=== PATIENT | male | born 1980 | race Caucasian/White ===

== ENCOUNTER 2021-07-09 11:20 | Outpatient (CLI) | payer MEDICARE, BC, MEDICAID, SELFPAY ==
[2021-07-09 11:54] LABS: Add Urine Microscopic? YES; Appearance Urine Clear (Clear); Bilirubin Urine Negative (Negative); Blood Urine Negative (Negative); Color Urine Yellow (Yellow); Glucose Urine UA Negative (Negative); Ketones Urine Trace (Negative); Leukocyte Esterase Ur Negative (Negative); Nitrate Urine Negative (Negative); Protein Urine Negative (Negative); Specific Grav Ur >= 1.030 (1.010-1.020); Urobilinogen Urine 0.2 mg/dL (0.2-1.0)
[2021-07-09 11:55] LABS: Basophils Absolute Auto 0.02 K/mm3 (0.00-0.10); Basophils Percent Auto 0.4 % (0.0-1.0); Eosinophils Absolute Auto 0.12 K/mm3 (0.02-0.50); Eosinophils Percent Auto 2.1 % (1.0-6.0); Hemoglobin 13.3 g/dL (14.0-18.0); Immature Granulocyte Absolute 0.02 K/mm3 (0.00-0.00); Immature Granulocyte Percent A 0.4 % (0.0-0.0); Lymphocytes Percent Auto 35.8 % (18.0-42.0); Mean Corpuscular HGB Conc 32.4 g/dL (32.0-36.0); Mean Corpuscular Hemoglobin 31.4 pg (27.0-31.0); Mean Corpuscular Volume 96.7 fL (78.0-102.0); Mean Platelet Volume 10.9 fl (8.7-11.0); Monocytes Absolute Auto 0.37 K/mm3 (0.10-0.90); Monocytes Percent Auto 6.6 % (2.0-11.0); Neutrophils Absolute Auto 3.1 K/mm3 (1.7-7.2); Neutrophils Percent Auto 54.7 % (50.0-70.0); Platelet Count Result 172 K/mm3 (150-420); Red Blood Count 4.24 M/mm3 (4.70-6.10); Red Cell Distribution Width 12.1 % (11.6-14.4); White Blood Count 5.6 K/mm3 (4.8-10.8)
[2021-07-09 12:01] LABS: Bacteria Urine None seen /hpf; RBC Urine 0-2 /hpf (0-2); Squamous Epithelial Cell Urine Rare /hpf (Few); WBC Urine 0-3 /hpf (0-3)
[2021-07-09 12:48] LABS: Alanine Aminotransferase 18 U/L (16-63); Alkaline Phosphatase 73 U/L (46-116); Anion Gap 7 mmol/L (8-16); Aspartate Amino Transferase 12 U/L (15-37); Bilirubin Direct 0.1 mg/dL (0-0.2); Bilirubin,Total 0.4 mg/dL (0.00-1.00); Blood Urea Nitrogen 12 mg/dL (7-18); Carbon Dioxide 29 mmol/L (21-32); Chloride 110 mmol/L (98-108); Cholesterol 168 mg/dL (0-200); Estimated Glomerular Filt Rate > 60; Folic Acid 11.9 ng/mL (8.6->20); Free T4 Free Thyroxine 0.91 ng/dL (0.76-1.46); Glucose 81 mg/dL (70-99); HDL Direct 55 mg/dL (40-60); LDL Cholesterol Calculated 97 mg/dL (<130); Osmolality Calculated 300 mOsm/kg (285-295); Potassium 4.5 mmol/L (3.5-5.1); Sodium 146 mmol/L (136-145); Thyroid Stimulating Hormone 1.05 uIU/mL (0.36-3.74); Total Protein 6.7 g/dL (6.4-8.2); Triglycerides 78 mg/dL (0-150); Vitamin B12 338 pg/mL (193-986)
== END 2021-07-09 11:21 | disposition home or self-care (01) ==
PROVIDERS: PCP Physician Assistant; Visit Provider Physician Assistant
DX: Z79.899 Other long term (current) drug therapy (principal); Z13.220 Encounter for screening for lipoid disorders
CPT/HCPCS: 36415; 80048; 80061; 80076; 81001; 82607; 82746; 84439; 84443; 85025

== ENCOUNTER 2021-08-11 13:36 | Outpatient (CLI) | payer MEDICARE, SELFPAY ==
[2021-08-11 13:54] LABS: Basophils Absolute Auto 0.02 K/mm3 (0.00-0.10); Basophils Percent Auto 0.5 % (0.0-1.0); Eosinophils Absolute Auto 0.15 K/mm3 (0.02-0.50); Eosinophils Percent Auto 3.5 % (1.0-6.0); Hematocrit 41.4 % (40.0-54.0); Hemoglobin 13.7 g/dL (14.0-18.0); Immature Granulocyte Absolute 0.01 K/mm3 (0.00-0.00); Immature Granulocyte Percent A 0.2 % (0.0-0.0); Lymphocytes Absolute Auto 1.41 K/mm3 (1.10-4.50); Lymphocytes Percent Auto 32.5 % (18.0-42.0); Mean Corpuscular HGB Conc 33.1 g/dL (32.0-36.0); Mean Corpuscular Volume 96.7 fL (78.0-102.0); Monocytes Absolute Auto 0.25 K/mm3 (0.10-0.90); Monocytes Percent Auto 5.8 % (2.0-11.0); Neutrophils Absolute Auto 2.5 K/mm3 (1.7-7.2); Neutrophils Percent Auto 57.5 % (50.0-70.0); Platelet Count Result 187 K/mm3 (150-420); Red Blood Count 4.28 M/mm3 (4.70-6.10); Red Cell Distribution Width 12.2 % (11.6-14.4); White Blood Count 4.3 K/mm3 (4.8-10.8)
[2021-08-11 15:01] LABS: Alanine Aminotransferase 15 U/L (16-63); Alkaline Phosphatase 73 U/L (46-116); Anion Gap 7 mmol/L (8-16); Aspartate Amino Transferase < 10 U/L (15-37); Bilirubin,Total 0.3 mg/dL (0.00-1.00); Blood Urea Nitrogen 16 mg/dL (7-18); Calcium 9.1 mg/dL (8.5-10.1); Carbon Dioxide 32 mmol/L (21-32); Chloride 106 mmol/L (98-108); Cholesterol 160 mg/dL (0-200); Estimated Glomerular Filt Rate > 60; Ferritin 68 ng/mL (26-388); Free T3 2.07 pg/mL (2.18-3.98); Free T4 Free Thyroxine 0.94 ng/dL (0.76-1.46); Glucose 85 mg/dL (70-99); HDL Direct 55 mg/dL (40-60); Iron 56 ug/dL (65-175); LDL Cholesterol Calculated 95 mg/dL (<130); Osmolality Calculated 300 mOsm/kg (285-295); Percent Iron Saturation 25 % (12-57); Potassium 4.8 mmol/L (3.5-5.1); Sodium 145 mmol/L (136-145); Thyroid Stimulating Hormone 0.67 uIU/mL (0.36-3.74); Total Protein 6.3 g/dL (6.4-8.2); Triglycerides 48 mg/dL (0-150); Vitamin B12 304 pg/mL (193-986)
[2021-08-14 13:25] LABS: Vitamin D 25 Hydroxy 25 ng/mL (30-100)
== END 2021-08-11 13:37 | disposition home or self-care (01) ==
LOC: CHSLAB 13:42
PROVIDERS: PCP Physician Assistant
DX: F33.1 Major depressive disorder, recurrent, moderate (principal); Z79.899 Other long term (current) drug therapy; R71.8 Other abnormality of red blood cells; R79.9 Abnormal finding of blood chemistry, unspecified
CPT/HCPCS: 36415; 80053; 80061; 82306; 82607; 82728; 83036; 83540; 83550; 84439; 84443; 84481; 85025

== ENCOUNTER 2022-01-05 12:44 | Outpatient (CLI) | payer MEDICARE, MEDICAID, SELFPAY ==
[2022-01-05 13:15] LABS: Basophils Absolute Auto 0.02 K/mm3 (0.00-0.10); Basophils Percent Auto 0.4 % (0.0-1.0); Eosinophils Absolute Auto 0.08 K/mm3 (0.02-0.50); Eosinophils Percent Auto 1.6 % (1.0-6.0); Hematocrit 42.5 % (40.0-54.0); Immature Granulocyte Absolute 0.01 K/mm3 (0.00-0.00); Immature Granulocyte Percent A 0.2 % (0.0-0.0); Lymphocytes Absolute Auto 1.82 K/mm3 (1.10-4.50); Lymphocytes Percent Auto 37.3 % (18.0-42.0); Mean Corpuscular HGB Conc 32.9 g/dL (32.0-36.0); Mean Corpuscular Hemoglobin 31.6 pg (27.0-31.0); Mean Corpuscular Volume 95.9 fL (78.0-102.0); Mean Platelet Volume 10.3 fl (8.7-11.0); Monocytes Absolute Auto 0.28 K/mm3 (0.10-0.90); Monocytes Percent Auto 5.7 % (2.0-11.0); Neutrophils Absolute Auto 2.7 K/mm3 (1.7-7.2); Neutrophils Percent Auto 54.8 % (50.0-70.0); Platelet Count Result 184 K/mm3 (150-420); Red Blood Count 4.43 M/mm3 (4.70-6.10); Red Cell Distribution Width 12.5 % (11.6-14.4); White Blood Count 4.9 K/mm3 (4.8-10.8)
[2022-01-05 14:19] LABS: Alanine Aminotransferase 20 U/L (16-63); Albumin Level 3.8 g/dL (3.4-5.0); Alkaline Phosphatase 71 U/L (46-116); Anion Gap 10 mmol/L (8-16); Aspartate Amino Transferase 14 U/L (15-37); Bilirubin,Total 0.5 mg/dL (0.00-1.00); Blood Urea Nitrogen 17 mg/dL (7-18); Calcium 8.8 mg/dL (8.5-10.1); Carbon Dioxide 30 mmol/L (21-32); Chloride 103 mmol/L (98-108); Estimated Glomerular Filt Rate > 60; Ferritin 57 ng/mL (26-388); Free T3 2.08 pg/mL (2.18-3.98); Free T4 Free Thyroxine 0.93 ng/dL (0.76-1.46); Glucose 77 mg/dL (70-99); Iron 109 ug/dL (65-175); Osmolality Calculated 296 mOsm/kg (285-295); Percent Iron Saturation 48 % (12-57); Potassium 4.1 mmol/L (3.5-5.1); Sodium 143 mmol/L (136-145); Thyroid Stimulating Hormone 1.68 uIU/mL (0.36-3.74); Total Protein 6.3 g/dL (6.4-8.2); Vitamin B12 483 pg/mL (193-986)
[2022-01-07 14:29] LABS: Vitamin D 25 Hydroxy 62 ng/mL (30-100)
== END 2022-01-05 12:45 | disposition home or self-care (01) ==
LOC: CHSLAB 12:53
PROVIDERS: PCP Physician Assistant
DX: F33.1 Major depressive disorder, recurrent, moderate (principal); D50.9 Iron deficiency anemia, unspecified; E55.9 Vitamin D deficiency, unspecified; Z13.89 Encounter for screening for other disorder
CPT/HCPCS: 36415; 80053; 82306; 82607; 82728; 83540; 83550; 84439; 84443; 84481; 85025

== ENCOUNTER 2022-01-28 12:19 | Outpatient (CLI) | payer MEDICARE, MEDICAID, SELFPAY ==
--- NOTE | 2022-01-29 11:23 | P.NEURO_ITS ---
Neurology EEG Report General Information Date of Study: 01/28/22 TEST eeg DIAGNOSIS Seizure disorder CONDITION OF RECORDING awake drowsy and sleep EEG NUMBER [id number] CLINICAL HISTORY patient reported he started having seizures about 4 years ago after having a stroke that left him partially paralyzed on the right side and affected his speech as well EEG DESCRIPTION basic resting occipital frequency consists of very minimal amount of poorly organized low voltage 8 to 10 hertz per 2nd alpha admixed with large amount of low-voltage 15 to 18 hertz per 2nd beta. During drowsiness low-voltage beta activity seen diffusely admixed with waxing and waning poorly organized background rhythm particularly posteriorly. Low-voltage beta activity seen admixed with 5 to 7 hertz per 2nd theta activity bilaterally with left hemispheric dominance. Hyperventilation not done. Photic stimulation produced poor Dr. throughout the tracing multiple movement artifacts and EKG artifacts are noted. Non paroxysmal. Focal. And lateralizing. IMPRESSION Abnormal record due to the presence of bihemispheric theta activity with left hemispheric dominance suggestive of underlying focal structural lesion p articularly on the left side but there is no evidence of paroxysmal activity throughout the tracing clinical correlation recommended these abnormalities could be suggestive of underlying left hemisphere focal for seizure activity
== END 2022-01-28 12:20 | disposition home or self-care (01) ==
LOC: ANHNEURO 12:20
PROVIDERS: PCP Physician Assistant; Visit Provider Physician Assistant
DX: G40.909 Epilepsy, unspecified, not intractable, without status epilepticus (principal); R94.01 Abnormal electroencephalogram [EEG]
CPT/HCPCS: 95816

== ENCOUNTER 2022-06-30 10:10 | Outpatient (CLI) | payer MEDICARE, BC, SELFPAY ==
[2022-06-30 10:33] LABS: Basophils Absolute Auto 0.03 K/mm3 (0.00-0.10); Basophils Percent Auto 0.5 % (0.0-1.0); Eosinophils Absolute Auto 0.16 K/mm3 (0.02-0.50); Eosinophils Percent Auto 2.5 % (1.0-6.0); Hematocrit 40.4 % (40.0-54.0); Hemoglobin 13.1 g/dL (14.0-18.0); Immature Granulocyte Absolute 0.02 K/mm3 (0.00-0.00); Immature Granulocyte Percent A 0.3 % (0.0-0.0); Lymphocytes Percent Auto 43.4 % (18.0-42.0); Mean Corpuscular HGB Conc 32.4 g/dL (32.0-36.0); Mean Corpuscular Hemoglobin 31.5 pg (27.0-31.0); Mean Corpuscular Volume 97.1 fL (78.0-102.0); Mean Platelet Volume 10.7 fl (8.7-11.0); Monocytes Absolute Auto 0.42 K/mm3 (0.10-0.90); Monocytes Percent Auto 6.5 % (2.0-11.0); Neutrophils Percent Auto 46.8 % (50.0-70.0); Platelet Count Result 175 K/mm3 (150-420); Red Blood Count 4.16 M/mm3 (4.70-6.10); Red Cell Distribution Width 12.4 % (11.6-14.4); White Blood Count 6.5 K/mm3 (4.8-10.8)
[2022-06-30 11:36] LABS: Alanine Aminotransferase 16 U/L (16-63); Albumin Level 3.9 g/dL (3.4-5.0); Alkaline Phosphatase 74 U/L (46-116); Anion Gap 8 mmol/L (8-16); Aspartate Amino Transferase 12 U/L (15-37); Bilirubin Direct 0.2 mg/dL (0-0.2); Bilirubin,Total 0.5 mg/dL (0.00-1.00); Blood Urea Nitrogen 20 mg/dL (7-18); Calcium 9.4 mg/dL (8.5-10.1); Carbon Dioxide 29 mmol/L (21-32); Chloride 106 mmol/L (98-108); Cholesterol 155 mg/dL (0-200); Estimated Glomerular Filt Rate > 60; Glucose 86 mg/dL (70-99); HDL Direct 51 mg/dL (40-60); LDL Cholesterol Calculated 91 mg/dL (<130); Osmolality Calculated 297 mOsm/kg (285-295); Potassium 4.7 mmol/L (3.5-5.1); Sodium 143 mmol/L (136-145); Thyroid Stimulating Hormone 2.29 uIU/mL (0.36-3.74); Total Protein 5.9 g/dL (6.4-8.2); Triglycerides 64 mg/dL (0-150); Vitamin B12 539 pg/mL (193-986)
[2022-06-30 11:38] LABS: Folic Acid > 20.0 ng/mL (8.6->20)
== END 2022-06-30 10:11 | disposition home or self-care (01) ==
LOC: CHSLAB 10:15
PROVIDERS: PCP Physician Assistant; Visit Provider Physician Assistant
DX: Z79.899 Other long term (current) drug therapy (principal); Z13.220 Encounter for screening for lipoid disorders
CPT/HCPCS: 36415; 80048; 80061; 80076; 82607; 82746; 84439; 84443; 85025

== ENCOUNTER 2022-07-13 15:41 | Outpatient (CLI) | payer MEDICARE, MEDICAID, SELFPAY ==
[2022-07-13 15:59] LABS: Basophils Absolute Auto 0.03 K/mm3 (0.00-0.10); Basophils Percent Auto 0.5 % (0.0-1.0); Eosinophils Absolute Auto 0.14 K/mm3 (0.02-0.50); Eosinophils Percent Auto 2.5 % (1.0-6.0); Hematocrit 40.7 % (40.0-54.0); Hemoglobin 13.4 g/dL (14.0-18.0); Immature Granulocyte Absolute 0.02 K/mm3 (0.00-0.00); Immature Granulocyte Percent A 0.4 % (0.0-0.0); Immature Reticulocyte Fraction 7.7 % (2.0-16.52); Lymphocytes Absolute Auto 2.07 K/mm3 (1.10-4.50); Lymphocytes Percent Auto 36.3 % (18.0-42.0); Mean Corpuscular HGB Conc 32.9 g/dL (32.0-36.0); Mean Corpuscular Hemoglobin 32.1 pg (27.0-31.0); Mean Corpuscular Volume 97.6 fL (78.0-102.0); Monocytes Absolute Auto 0.41 K/mm3 (0.10-0.90); Monocytes Percent Auto 7.2 % (2.0-11.0); Neutrophils Percent Auto 53.1 % (50.0-70.0); Platelet Count Result 182 K/mm3 (150-420); Red Blood Count 4.17 M/mm3 (4.70-6.10); Red Cell Distribution Width 12.3 % (11.6-14.4); Reticulocyte Hemoglobin Conten 34.8 pg (28.0-35.0); Reticulocyte Percent 0.85 % (0.50-1.50); Reticulocytes Absolute 0.04 M/mm3 (0.02-0.1); White Blood Count 5.7 K/mm3 (4.8-10.8)
[2022-07-13 16:48] LABS: Ferritin 47 ng/mL (26-388); Iron 46 ug/dL (65-175); Percent Iron Saturation 20 % (12-57); Vitamin B12 609 pg/mL (193-986)
[2022-07-13 16:52] LABS: Folic Acid > 20.0 ng/mL (8.6->20)
== END 2022-07-13 15:42 | disposition home or self-care (01) ==
LOC: CHSLAB 15:46
PROVIDERS: PCP Physician Assistant; Visit Provider Physician Assistant
DX: D64.9 Anemia, unspecified (principal)
CPT/HCPCS: 36415; 82607; 82728; 82746; 83540; 83550; 85025; 85046

== ENCOUNTER 2022-09-01 11:19 | Outpatient (CLI) | payer MEDICARE, BC, SELFPAY ==
[2022-09-01 11:37] LABS: Basophils Absolute Auto 0.02 K/mm3 (0.00-0.10); Basophils Percent Auto 0.4 % (0.0-1.0); Eosinophils Absolute Auto 0.23 K/mm3 (0.02-0.50); Hematocrit 41.7 % (40.0-54.0); Hemoglobin 13.9 g/dL (14.0-18.0); Immature Granulocyte Absolute 0.02 K/mm3 (0.00-0.00); Immature Granulocyte Percent A 0.4 % (0.0-0.0); Lymphocytes Absolute Auto 1.78 K/mm3 (1.10-4.50); Lymphocytes Percent Auto 31.2 % (18.0-42.0); Mean Corpuscular HGB Conc 33.3 g/dL (32.0-36.0); Mean Corpuscular Volume 95.9 fL (78.0-102.0); Mean Platelet Volume 10.7 fl (8.7-11.0); Monocytes Absolute Auto 0.37 K/mm3 (0.10-0.90); Monocytes Percent Auto 6.5 % (2.0-11.0); Neutrophils Absolute Auto 3.3 K/mm3 (1.7-7.2); Neutrophils Percent Auto 57.5 % (50.0-70.0); Platelet Count Result 193 K/mm3 (150-420); Red Blood Count 4.35 M/mm3 (4.70-6.10); Red Cell Distribution Width 12.3 % (11.6-14.4); White Blood Count 5.7 K/mm3 (4.8-10.8)
[2022-09-01 12:20] LABS: Anion Gap 6 mmol/L (8-16); Blood Urea Nitrogen 20 mg/dL (7-18); Calcium 9.1 mg/dL (8.5-10.1); Carbon Dioxide 31 mmol/L (21-32); Chloride 107 mmol/L (98-108); Estimated Glomerular Filt Rate > 60; Glucose 85 mg/dL (70-99); Osmolality Calculated 299 mOsm/kg (285-295); Potassium 4.6 mmol/L (3.5-5.1); Sodium 144 mmol/L (136-145)
[2022-09-01 12:21] LABS: Alanine Aminotransferase 17 U/L (16-63); Alkaline Phosphatase 90 U/L (46-116); Aspartate Amino Transferase 14 U/L (15-37); Bilirubin,Total 0.4 mg/dL (0.00-1.00); Free T4 Free Thyroxine 1.02 ng/dL (0.76-1.46); Total Protein 6.4 g/dL (6.4-8.2)
[2022-09-01 12:33] LABS: Bilirubin Direct 0.1 mg/dL (0-0.2); Iron 66 ug/dL (65-175); Percent Iron Saturation 27 % (12-57)
[2022-09-02 12:48] LABS: Ferritin 82 ng/mL (26-388)
== END 2022-09-01 11:20 | disposition home or self-care (01) ==
LOC: CHSLAB 11:22
PROVIDERS: PCP Physician Assistant; Visit Provider Physician Assistant
DX: D64.9 Anemia, unspecified (principal); Z79.899 Other long term (current) drug therapy
CPT/HCPCS: 36415; 80048; 80076; 82728; 83540; 83550; 84439; 84443; 85025

== ENCOUNTER 2022-11-17 14:38 | Emergency (ER) | payer MEDICARE, MEDICAID, SELFPAY ==
--- NOTE | ~2022-11-17 | XR_ITS ---
XR chest 1V portable DATE: 11/17/2022 15:55 INDICATION: Cough, sore throat for 3 days TECHNIQUE: Portable AP views on 11/17/2022 at 1601 hours COMPARISON: None FINDINGS: Normal heart size. No hilar or mediastinal enlargement. Mild infiltrate, atelectasis or scarring at the right lung base. The lungs are otherwise clear of inf iltrate or consolidation. Mild chronic blunting of the right costophrenic angle versus small right pleural effusion. No prior r adiographs are available for comparison. No left pleural effusion. Mild thoracolumbar dextroscoliosis. IMPRESSION: Mild infiltrate, atelectasis or scarring at the right lung base and probable mild chronic blunting of the right costophrenic angle. Cannot exclude minimal right pleural effusion Reviewed, dictated and finalized at location [facility]. [employer]
[2022-11-17 14:38] VITALS: BP 114/83; PULSE 65; RESP 16; TEMP 37.3; O2SAT 99
[2022-11-17 14:55] VITALS: BP 114/83; PULSE 65; RESP 16; TEMP 37.3; O2SAT 99
[2022-11-17 15:24] LABS: Strep Group A RT-PCR NOT DETECTED (Negative)
[2022-11-17 15:29] LABS: Influenza A QL RT-PCR Negative (Negative); Influenza B QL RT-PCR Negative (Negative); SARS-CoV-2 RNA PCR Negative (Negative)
--- NOTE | 2022-11-17 15:35 | ED.GENADULT ---
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 He does have expressive aphasia as well as a history of anxiety attacks. For the last 3 days, the patient has had complaints of a mild sore throat, myalgias, aches and pains, and a mild headache. He does have a chronic cough. Also with rhinorrhea nasal congestion per his report. No chest pain or abdominal pain. No fevers or chills or diaphoresis. No urinary symptoms. Related Data Home Medications Medication Instructions Recorded Confirmed aspirin 81 mg tablet,delayed 81 mg PO DAILY 03/23/22 11/17/22 release baclofen 10 mg tablet 10 mg PO BID 03/23/22 11/17/22 escitalopram oxalate 10 mg tablet 10 mg PO DAILY 03/23/22 11/17/22 gabapentin 300 mg capsule 300 mg PO BID 03/23/22 11/17/22 levetiracetam 750 mg tablet 750 mg PO Q12H 03/23/22 11/17/22 Allergies Allergy/AdvReac Type Severity Reaction Status Date / Time No Known Allergies Allergy Verified 11/17/22 14:47 Review of Systems Review of Systems: All systems reviewed & are unremarkable except as noted in HPI and below Constitutional: Constitutional: Reports no additional constitutional complaints, Denies anorexia, Reports body ache(s), Denies chills, Denies excessive sweating, Denies fatigue, Denies fever(s), Denies frequent falls, Denies headache(s), Reports malaise and Denies poor appetite Eyes: Eyes: Reports no additional eye complaints, Denies blurry vision, Denies change in vision, Denies irritation, Denies itchy eyes and Denies photophobia ENT: Reports system reviewed and no additional complaints, except as documented, Reports Normal hearing present, Denies change in voice, Denies dysphagia, Denies vertigo, Denies dizziness, Denies ear discharge, Denies headache(s), Denies hearing loss, Denies hoarseness, Reports nasal congestion, Denies neck pain, Denies sinus pressure, Reports sore throat and Denies throat swelling Cardiovascular: Cardiovascular: Reports no additional cardiovascular complaints, Denies chest pain, Denies syncope, Denies rapid heart rate, Denies irregular heart rhythm, Denies leg edema, Denies dyspnea and Denies slow heart rate Respiratory: Respiratory: Reports no additional respiratory complaints, Reports cough, Denies dyspnea, Denies stridor and Denies wheezing Gastrointestinal: Gastrointestinal: Reports no additional gastrointestinal complaints, Denies abdominal pain, Denies melena, Denies hematochezia, Denies dysphagia, Denies diarrhea, Denies nausea and Denies vomiting Genitourinary: Genitourinary: Denies hematuria, Denies oliguria, Denies dysuria, Denies flank pain, Denies urinary frequency and Denies urinary urgency Musculoskeletal: Musculoskeletal: Reports no additional musculoskeletal complaints, Reports abnormal gait ( From prior stroke), Denies back pain, Reports myalgias, Denies arthralgias, Denies joint swelling, Denies limited range of motion, Denies muscle cramps, Denies muscle weakness, Denies neck pain and Denies numbness Integumentary/Breasts: Skin/Breast: Reports system reviewed and no additional complaints, except as docu, Denies breast pain, Denies change in pigmentation, Denies pruritus, Denies erythema and Denies wounds Neurologic: Reports system reviewed and no additional complaints, except as documented, Reports Normal hearing present, Denies Abnormal speech present, Reports abnormal gait, Denies confusion, Denies vertigo, Denies dizziness, Denies syncope, Denies frequent falls, Denies headache(s), Reports focal weakness ( right hemiparesis from previous stroke), Denies numbness and Denies paresthesias Psychiatric: Psychiatric: Reports no additional psychiatric complaints and Denies confusion Endocrine: Endocrine: Reports no additional endo
[2022-11-17 16:00] VITALS: PULSE 60; RESP 16; O2SAT 98
== END 2022-11-17 16:00 | disposition home or self-care (01) ==
PROVIDERS: Emergency Provider Emergency Medicine; PCP Physician Assistant
DX: J06.9 Acute upper respiratory infection, unspecified (principal); I69.351 Hemiplegia and hemiparesis following cerebral infarction affecting right dominant side; F17.200 Nicotine dependence, unspecified, uncomplicated; Z79.82 Long term (current) use of aspirin; Z20.822 Contact with and (suspected) exposure to COVID-19
CPT/HCPCS: 71045; 87636; 87651; 99283

== ENCOUNTER 2023-04-13 17:05 | Outpatient (CLI) | payer MEDICARE, MEDICAID, SELFPAY ==
[2023-04-13 17:32] LABS: Basophils Absolute Auto 0.02 K/mm3 (0.00-0.10); Basophils Percent Auto 0.4 % (0.0-1.0); Eosinophils Absolute Auto 0.08 K/mm3 (0.02-0.50); Eosinophils Percent Auto 1.5 % (1.0-6.0); Hematocrit 39.3 % (40.0-54.0); Hemoglobin 12.7 g/dL (14.0-18.0); Immature Granulocyte Absolute 0.01 K/mm3 (0.00-0.00); Immature Granulocyte Percent A 0.2 % (0.0-0.0); Lymphocytes Absolute Auto 1.95 K/mm3 (1.10-4.50); Mean Corpuscular HGB Conc 32.3 g/dL (32.0-36.0); Mean Corpuscular Hemoglobin 31.5 pg (27.0-31.0); Mean Corpuscular Volume 97.5 fL (78.0-102.0); Mean Platelet Volume 10.8 fl (8.7-11.0); Monocytes Absolute Auto 0.33 K/mm3 (0.10-0.90); Monocytes Percent Auto 6.1 % (2.0-11.0); Neutrophils Percent Auto 55.8 % (50.0-70.0); Platelet Count Result 181 K/mm3 (150-420); Red Blood Count 4.03 M/mm3 (4.70-6.10); Red Cell Distribution Width 12.3 % (11.6-14.4); White Blood Count 5.4 K/mm3 (4.8-10.8)
[2023-04-13 18:14] LABS: Albumin Level 3.8 g/dL (3.4-5.0); Alkaline Phosphatase 79 U/L (46-116); Anion Gap 6 mmol/L (8-16); Bilirubin Direct 0.1 mg/dL (0-0.2); Bilirubin,Total 0.3 mg/dL (0.00-1.00); Blood Urea Nitrogen 18 mg/dL (7-18); Calcium 9.1 mg/dL (8.5-10.1); Carbon Dioxide 34 mmol/L (21-32); Chloride 105 mmol/L (98-108); Estimated Glomerular Filt Rate > 60; Ferritin 105 ng/mL (26-388); Folic Acid 19.3 ng/mL (8.6->20); Glucose 82 mg/dL (70-99); Iron 42 ug/dL (65-175); Magnesium 1.8 mg/dL (1.8-2.4); Osmolality Calculated 300 mOsm/kg (285-295); Percent Iron Saturation 19 % (12-57); Potassium 4.4 mmol/L (3.5-5.1); Sodium 145 mmol/L (136-145); Thyroid Stimulating Hormone 0.75 uIU/mL (0.36-3.74); Total Protein 6.5 g/dL (6.4-8.2); Vitamin B12 551 pg/mL (193-986)
[2023-04-13 18:28] LABS: Alanine Aminotransferase 17 U/L (16-63)
[2023-04-13 18:37] LABS: Aspartate Amino Transferase 22 U/L (15-37)
== END 2023-04-13 17:06 | disposition home or self-care (01) ==
LOC: CHSLAB 17:10
PROVIDERS: PCP Physician Assistant; Visit Provider Physician Assistant
DX: R63.4 Abnormal weight loss (principal); D50.9 Iron deficiency anemia, unspecified; Z79.899 Other long term (current) drug therapy; R73.09 Other abnormal glucose
CPT/HCPCS: 36415; 80048; 80076; 82607; 82728; 82746; 83036; 83540; 83550; 83735; 84439; 84443; 85025

== ENCOUNTER 2023-11-24 12:40 | Outpatient (CLI) | payer MEDICARE, SELFPAY | END 2023-11-24 12:41 | disposition home or self-care (01) | PROVIDERS: PCP Family Medicine; Visit Provider Family Medicine | DX: R19.7 Diarrhea, unspecified (principal) | CPT/HCPCS: 87045; 87324; 87427; 87449 ==

== ENCOUNTER 2024-06-13 12:13 | Outpatient (CLI) | payer MEDICARE, SELFPAY ==
[2024-06-13 12:31] LABS: Basophils Absolute Auto 0.02 K/mm3 (0.00-0.10); Basophils Percent Auto 0.4 % (0.0-1.0); Eosinophils Absolute Auto 0.14 K/mm3 (0.02-0.50); Eosinophils Percent Auto 2.8 % (1.0-6.0); Hematocrit 41.2 % (40.0-54.0); Hemoglobin 13.6 g/dL (14.0-18.0); Immature Granulocyte Absolute 0.01 K/mm3 (0.00-0.00); Immature Granulocyte Percent A 0.2 % (0.0-0.0); Lymphocytes Absolute Auto 1.94 K/mm3 (1.10-4.50); Lymphocytes Percent Auto 38.8 % (18.0-42.0); Mean Corpuscular Hemoglobin 31.6 pg (27.0-31.0); Mean Corpuscular Volume 95.8 fL (78.0-102.0); Mean Platelet Volume 10.5 fl (8.7-11.0); Monocytes Absolute Auto 0.28 K/mm3 (0.10-0.90); Monocytes Percent Auto 5.6 % (2.0-11.0); Neutrophils Absolute Auto 2.61 K/mm3 (1.70-7.20); Neutrophils Percent Auto 52.2 % (50.0-70.0); Platelet Count Result 173 K/mm3 (150-420)
[2024-06-13 13:33] LABS: Alanine Aminotransferase 25 U/L (16-63); Albumin Level 3.9 g/dL (3.4-5.0); Alkaline Phosphatase 76 U/L (46-116); Anion Gap 4 mmol/L (4-12); Aspartate Amino Transferase 17 U/L (15-37); Bilirubin Direct 0.1 mg/dL (0-0.2); Bilirubin,Total 0.5 mg/dL (0.00-1.00); Blood Urea Nitrogen 12 mg/dL (7-18); Calcium 9.3 mg/dL (8.5-10.1); Carbon Dioxide 31 mmol/L (21-32); Chloride 104 mmol/L (98-108); Cholesterol 144 mg/dL (0-200); Estimated Glomerular Filt Rate > 60; Ferritin 205 ng/mL (26-388); Free T4 Free Thyroxine 0.82 ng/dL (0.76-1.46); Glucose 93 mg/dL (70-99); HDL Direct 49 mg/dL (40-60); Iron 69 ug/dL (65-175); LDL Cholesterol Calculated 79 mg/dL (<130); Osmolality Calculated 287 mOsm/kg (285-295); Percent Iron Saturation 34 % (12-57); Potassium 4.5 mmol/L (3.5-5.1); Sodium 139 mmol/L (136-145); Thyroid Stimulating Hormone 0.82 uIU/mL (0.36-3.74); Total Protein 6.1 g/dL (6.4-8.2); Triglycerides 79 mg/dL (0-150); Vitamin B12 874 pg/mL (193-986)
[2024-06-13 13:35] LABS: Folic Acid > 20.0 ng/mL (8.6->20)
== END 2024-06-13 12:14 | disposition home or self-care (01) ==
LOC: CHSLAB 12:15
PROVIDERS: PCP Physician Assistant; Visit Provider Physician Assistant
DX: D50.9 Iron deficiency anemia, unspecified (principal); Z79.899 Other long term (current) drug therapy; Z13.220 Encounter for screening for lipoid disorders
CPT/HCPCS: 36415; 80048; 80061; 80076; 82607; 82728; 82746; 83540; 83550; 84439; 84443; 85025

== ENCOUNTER 2024-11-05 11:44 | Outpatient (CLI) | payer MEDICARE, SELFPAY ==
[2024-11-05 12:01] LABS: Basophils Absolute Auto 0.01 K/mm3 (0.00-0.10); Basophils Percent Auto 0.1 % (0.0-1.0); Eosinophils Absolute Auto 0.11 K/mm3 (0.02-0.50); Eosinophils Percent Auto 1.4 % (1.0-6.0); Hematocrit 39.8 % (40.0-54.0); Hemoglobin 13.5 g/dL (14.0-18.0); Immature Granulocyte Absolute 0.01 K/mm3 (0.00-0.00); Immature Granulocyte Percent A 0.1 % (0.0-0.0); Lymphocytes Absolute Auto 3.03 K/mm3 (1.10-4.50); Mean Corpuscular HGB Conc 33.9 g/dL (32-36); Mean Corpuscular Hemoglobin 32.1 pg (27.0-31.0); Mean Corpuscular Volume 94.5 fL (78.0-102.0); Mean Platelet Volume 10.7 fl (8.7-11.0); Monocytes Absolute Auto 0.45 K/mm3 (0.10-0.90); Monocytes Percent Auto 5.8 % (2.0-11.0); Neutrophils Absolute Auto 4.16 K/mm3 (1.70-7.20); Neutrophils Percent Auto 53.6 % (50.0-70.0); Platelet Count Result 188 K/mm3 (150-420); Red Blood Count 4.21 M/mm3 (4.70-6.10); Red Cell Distribution Width 11.9 % (11.6-14.4); White Blood Count 7.8 K/mm3 (4.8-10.8)
[2024-11-05 12:12] LABS: Hemoglobin A1C 4.9 % (<5.7)
[2024-11-05 14:19] LABS: Alanine Aminotransferase 23 U/L (16-63); Albumin Level 4.2 g/dL (3.4-5.0); Alkaline Phosphatase 93 U/L (46-116); Anion Gap 6 mmol/L (4-12); Aspartate Amino Transferase 22 U/L (15-37); Bilirubin Direct 0.1 mg/dL (0-0.2); Bilirubin,Total 0.3 mg/dL (0.00-1.00); Blood Urea Nitrogen 18 mg/dL (7-18); Calcium 9.8 mg/dL (8.5-10.1); Carbon Dioxide 30 mmol/L (21-32); Chloride 103 mmol/L (98-108); Estimated Glomerular Filt Rate > 60; Free T4 Free Thyroxine 0.91 ng/dL (0.76-1.46); Glucose 78 mg/dL (70-99); Iron 46 ug/dL (65-175); Osmolality Calculated 288 mOsm/kg (285-295); Percent Iron Saturation 18 % (12-57); Potassium 5.2 mmol/L (3.5-5.1); Sodium 139 mmol/L (136-145); Thyroid Stimulating Hormone 1.79 uIU/mL (0.36-3.74); Total Protein 6.6 g/dL (6.4-8.2); Vitamin B12 1265 pg/mL (193-986)
[2024-11-05 14:23] LABS: Folic Acid > 20.0 ng/mL (8.6->20)
[2024-11-05 14:45] LABS: Ferritin 138 ng/mL (26-388)
== END 2024-11-05 11:45 | disposition home or self-care (01) ==
LOC: CHSLAB 11:47
PROVIDERS: PCP Physician Assistant; Visit Provider Physician Assistant
DX: R73.09 Other abnormal glucose (principal); Z79.899 Other long term (current) drug therapy; D50.9 Iron deficiency anemia, unspecified
CPT/HCPCS: 36415; 80048; 80076; 82607; 82728; 82746; 83036; 83540; 83550; 84439; 84443; 85025

== ENCOUNTER 2025-06-26 11:25 | Outpatient (CLI) | payer MEDICARE, MEDICAID, SELFPAY ==
[2025-06-26 11:43] LABS: Hematocrit 42.9 % (40.0-54.0); Hemoglobin 13.6 g/dL (14.0-18.0); Immature Granulocyte Percent A 0.5 % (0.0-0.0); Lymphocytes Absolute Auto 1.81 K/mm3 (1.10-4.50); Mean Corpuscular HGB Conc 31.7 g/dL (32-36); Mean Corpuscular Hemoglobin 30.9 pg (27.0-31.0); Mean Corpuscular Volume 97.5 fL (78.0-102.0); Nucleated Red Blood Cells Absolute Auto 0.00 K/mm3 (0.00-0.00); Nucleated Red Blood Cells Perc 0.0 % (0-0.0); Platelet Count Result 205 K/mm3 (150-420); Red Blood Count 4.40 M/mm3 (4.70-6.10); White Blood Count 6.5 K/mm3 (4.8-10.8)
--- OUTSIDE RECORDS SUMMARY | 2025-06-26 11:54 | XMS_ITS | Encounter Summary ---
Author Organization [facility] Address [address] [place] [id number] Care Team Providers Care Product Safety Coordinator Name Role Phone Rashida Alvarez Primary Care Provider [phone] Reason for Referral * Imaging (Routine) - Closed Specialty Diagnoses / Procedures Referred By Lakhwinder do Referred To Contact RADIOLOGY Diagnoses Chronic sinusitis, unspecified Procedures CT SINUS WO CON Rashida Alvarez PA [address] [place] [address] Phone: tel: fax: Referral ID Status Reason Start Date Expiration Date Visits Re quested Visits Authorized [id number] Closed 06/12/2025 06/13/2026 1 1 Reason for Visit * Imaging (Routine) - Closed Specialty Diagnoses / Procedures Referred By Lakhwinder do Referred To Contact RADIOLOGY Diagnoses Chronic sinusitis, unspecified Procedures CT SINUS WO CON Rashida Alvarez PA [address] [place] [address] Phone: tel: fax: Referral ID Status Reason Start Date Expiration Date Visits Re quested Visits Authorized [id number] Closed 06/12/2025 06/13/2026 1 1 Encounter Details Date Type Department Care Team (Latest Contact Info) Description 06/24/2025 10:42 AM CDT - 06/24/2025 11:59 PM CDT Hospital Encounter [facility] [address] [place] [address] Rashida Alvarez PA [address] [place] [address] Arrived Discharge Disposition: Home or Self Care (Routine Discharge) Social History Tobacco Use Types Packs/Day Years Used Date Smoking Tobacco: Never Assessed Sex and Gender Information Value Date Recorded Sex Assigned at Not on file Legal Sex Male 6:38 PM CDT Gender Identity Not on file Sexual Orientation Not on file documented as of this encounter Plan of Treatment Pending Results Name Type Priority Associated Diagnoses Date /Time CT SINUS WO CON CT Routine Chronic sinusitis, unspecified 06/24/2025 10:50 AM CDT Scheduled Orders Name Type Priority Associated Diagnoses Orde r Schedule CT SINUS WO CON CT Routine Chronic sinusitis, unspecified Once for 1 Occurrences starting 06/24/2025 until 06/24/2025 documented as of this encounter Visit Diagnoses Diagnosis Chronic sinusitis, unspecified documented in this encounter Care Teams Product Safety Coordinator Relationship Specialty Start Date End Date Rashida Alvarez PA PCP - General PHYSICIAN MICROBIOLOGY INSTRUCTOR 04/18/23 documented as of this encounter
--- OUTSIDE RECORDS SUMMARY | 2025-06-26 11:54 | XMS_ITS | Clinical Summary ---
Author Organization [facility] Address [address] [place] [address] Care Team Providers Care Hot Packer Name Role Phone Rashida Alvarez Primary Care Provider [phone] Encounters Date Type Department Care Team Description 06/24/2025 10:42 AM CDT - 06/24/2025 11:59 PM CDT Hospital Encounter [facility] [address] [facility] [address] Rashida Alvarez PA Arrived Discharge Disposition: Home or Self Care (Routine Discharge) 06/24/2025 Travel from Last 3 Months Social History Tobacco Use Types Packs/Day Years Used Date Smoking Tobacco: Never Assessed Sex and Gender Information Value Date Recorded Sex Assigned at Not on file Legal Sex Male 6:38 PM CDT Gender Identity Not on file Sexual Orientation Not on file Plan of Treatment Health Maintenance Due Date Last Done Comments Annual Physical 1983 Hepatitis C 1998 Hepatitis B Vaccines (1 of 3 - 19+ 3-dose series) 1999 HPV Vaccines (1 - 3-dose SCDM series) 2007 DTaP, Tdap and Td Vaccines (2 - Td or Tdap) 12/12/2024 12/12/2014 COVID-19 Vaccine Completed 08/13/2024, , 09/27/2023, Additional history exists Meningococcal B Vaccine Aged Out No l onger eligible based on patient's age to complete this topic Meningococcal Vaccine Aged Out No prisca katarina eligible based on patient's age to complete this topic Pneumococcal Vaccine: Pediatrics (0 to 5 Years) and At-Risk Patients (6 to 49 Years) Aged Out No longer eligible based on patient's age to complete this topic RSV Immunizations Under 20 Months Aged Out No longer eligible based on patient's age to complete this topic Insurance MEDICAID MEDICARE Care Teams Hot Packer Relationship Specialty Start Date End Date Rashida Alvarez PA PCP - General PHYSICIAN JUNIOR MARKETING ASSOCIATE 04/18/23
[2025-06-26 12:24] LABS: Hemoglobin A1C 4.9 % (<5.7)
[2025-06-26 12:38] LABS: Alanine Aminotransferase 25 U/L (6-50); Albumin Level 4.3 g/dL (3.5-5.1); Alkaline Phosphatase 67 U/L (38-126); Anion Gap 3 mmol/L (4-12); Aspartate Amino Transferase 25 U/L (17-59); Bilirubin,Total 0.6 mg/dL (0.2-1.3); Blood Urea Nitrogen 17 mg/dL (9-20); Calcium 9.7 mg/dL (8.4-10.2); Carbon Dioxide 30 mmol/L (22-30); Chloride 110 mmol/L (98-107); Estimated Glomerular Filt Rate > 60; Glucose 90 mg/dL (65-110); Osmolality Calculated 297 mOsm/kg (285-295); Potassium 4.7 mmol/L (3.4-5.0); Sodium 143 mmol/L (137-145); Total Protein 6.1 g/dL (6.3-8.2)
[2025-06-26 14:49] LABS: Free T4 Free Thyroxine 1.07 ng/dL (0.78-2.19)
[2025-06-26 15:02] LABS: Thyroid Stimulating Hormone 0.225 uIU/mL (0.465-4.680)
[2025-06-26 15:39] LABS: Vitamin B12 951.0 pg/mL (239-931)
== END 2025-06-26 11:26 | disposition home or self-care (01) ==
LOC: CHSLAB 11:31
PROVIDERS: PCP Physician Assistant; Visit Provider Physician Assistant
DX: E16.2 Hypoglycemia, unspecified (principal); D50.9 Iron deficiency anemia, unspecified; Z79.899 Other long term (current) drug therapy
CPT/HCPCS: 36415; 80048; 80076; 82607; 82746; 83036; 83525; 84439; 84443; 85025